=== PATIENT | male | born 1995 | race Caucasian/White ===

== ENCOUNTER 2018-12-14 19:12 | Emergency (ER) | payer OTHER ==
[~2018-12-14] VITALS: Ht 167.6 cm; Wt 61.2 kg
[2018-12-14] MEDS ORDERED: MEDROLPACK PO (21:16)
[2018-12-14] MEDS ORDERED: ZYRTEC10 M3 PO (21:16)
== END 2018-12-14 21:27 ==
LOC: ER 19:12
DX: L50.8 Other urticaria (principal)